=== PATIENT | male | born 1995 | race Caucasian/White ===

== ENCOUNTER 2017-09-21 05:05 | Emergency (ER) | payer BC ==
[~2017-09-21] VITALS: Ht 182.9 cm; Wt 74.8 kg
[~2017-09-21 05:05] MED LIST: AMOX500T2 PO
--- NOTE | 2017-09-21 05:28 | NUR ---
DANIELA CONTRERAS at bedside for patient evaluation.
[2017-09-21] MEDS ORDERED: HYDROMORPHONE 2 MG/1 ML DISP.SYRIN ONE (05:37)
[2017-09-21] MEDS ORDERED: HYDROMORPHONE 1 MG/1 ML DISP.SYRIN IV ONE (05:45)
[2017-09-21] MEDS ORDERED: ONDANSETRON 4 MG/2 ML VIAL IV ONE (05:45)
[2017-09-21 05:51] LABS: BASOPHILS # (AUTO) 0.1 K/uL (0.0-8.0); BASOPHILS % (AUTO) 0.7 % (0.0-2.0); EOSINOPHILS # (AUTO) 0.2 K/uL (0.0-0.7); EOSINOPHILS % (AUTO) 1.2 % (0.0-7.0); HEMATOCRIT 40.5 % (36.7-47.1); HEMOGLOBIN 13.7 g/dL (12.5-16.3); LYMPHOCYTES # (AUTO) 2.2 K/uL (20.0-40.0); LYMPHOCYTES % (AUTO) 14.7 % (20.5-74.5); MEAN CORPUSCULAR HEMOGLOBIN 30.4 uug (23.8-33.4); MEAN CORPUSCULAR HGB CONC 34 g/dL (32.5-36.3); MEAN CORPUSCULAR VOLUME 89.5 fL (73.0-96.2); MONOCYTES # (AUTO) 1.3 K/uL (2.0-10.0); MONOCYTES % (AUTO) 8.6 % (0-11); NEUTROPHILS # (AUTO) 11.3 K/uL (1.8-8.9); NEUTROPHILS % (AUTO) 74.8 % (31.5-64.5); PLATELET COUNT (AUTO) 258 K/uL (152-348); RED BLOOD CELL COUNT(AUTO) 4.52 MIL/uL (4.06-5.63)
[2017-09-21] MEDS ORDERED: ONDANSETRON 4 MG/2 ML VIAL ONE (05:52)
--- NOTE | 2017-09-21 05:55 | NUR ---
Patient taken to CT at this time. no acute distress noted. VSS. Mother in room 2B awaiting patient return.
[2017-09-21] MEDS ORDERED: IV NORMAL SALINE 1000 ML BAG IV ONE (06:00)
[2017-09-21 06:01] LABS: CREATININE 0.9 mg/dL (0.6-1.3); POTASSIUM 4.1 mmol/L (3.5-5.1)
[2017-09-21 06:07] LABS: BILIRUBIN,DIRECT 0.3 mg/dL (0.0-0.2); BILIRUBIN,TOTAL 1.5 mg/dL (0.2-1.0); TOTAL PROTEIN, SERUM 8.1 g/dL (6.4-8.2)
--- NOTE | 2017-09-21 06:09 | NUR ---
Patient back from CT at this time. no acute distress noted.
--- NOTE | 2017-09-21 06:51 | NUR ---
Jamie SUAREZ MD at bedside for patient evaluation/update.
--- NOTE | 2017-09-21 07:04 | NUR ---
Report given to Abisai SANABRIA.
[2017-09-21 07:43] LABS: *MONOTEST NEGATIVE (NEGATIVE)
[2017-09-21 09:16] LABS: *BLOOD, URINE NEGATIVE (NEGATIVE); *CLARITY,URINE CLEAR (CLEAR); *COLOR,URINE YELLOW (YELLOW); *KETONES,URINE 2+ (NEGATIVE); *PROTEIN,URINE TRACE (NEGATIVE); *UROBILINOGEN,URINE 0.2 E.U./dl (NORMAL); LEUKOCYTE ESTERASE ,URINE NEGATIVE (NEGATIVE); NITRITE, URINE NEGATIVE (NEGATIVE); UGLUCOSE NEGATIVE (NEGATIVE)
[2017-09-21 09:19] LABS: *BILIRUBIN,URIN 1+ (NEGATIVE)
--- NOTE | 2017-09-21 09:31 | NUR ---
ALL THE STUDIES FAXED TO PT OWN [facility] PER ER REQUEST AT [phone]
--- NOTE | 2017-09-21 09:33 | NUR ---
Patient discharged to home in stable conditon. Written and verbal after care instructions given. Patient verbalizes understanding of instructions.PT WALKS IN STEADY GAIT ACCOMPANIED BY MOTHER. PT ABDOMINAL PAIN DOWN TOLARABALE LEVEL. PT TOLERATED PO CHALLENGE
[2017-09-21 09:35] VITALS: BP 121/80
[2017-09-21 09:36] LABS: BACTERIA,URINE FEW /HPF (NONE SEEN); RBC,URINE 0-3 /HPF (0-3); SQUAMOUS EPITHELIAL CELL,UR FEW /HPF (NONE SEEN)
[2017-09-21 09:37] LABS: MUCUS,URINE MANY /LPF (0-FEW)
== END 2017-09-21 09:41 | disposition home or self-care (01) ==
LOC: ER 05:08
DX: R10.12 Left upper quadrant pain (principal); R11.0 Nausea; K22.9 Disease of esophagus, unspecified; K59.00 Constipation, unspecified; R16.2 Hepatomegaly with splenomegaly, not elsewhere classified; G43.909 Migraine, unspecified, not intractable, without status migrainosus
CPT/HCPCS: 36415; 70030-TC; 71045; 76700; 83690; 85025; 85730; 86308; 93005; A4663; J1170; J2405